=== PATIENT | female | born 1990 | race Caucasian/White ===

== ENCOUNTER 2017-10-30 22:58 | Emergency (ER) | payer MEDICAID ==
[~2017-10-30] VITALS: Ht 177.8 cm; Wt 90.9 kg
[~2017-10-30 22:58] MED LIST: SULF1TAB49 PO
[2017-10-30] MEDS ORDERED: acetaminophen 325mg tablet PO ONE (23:15)
[2017-10-30] MEDS ORDERED: normal saline 1000ML IV soln IVB ONE (23:55)
[2017-10-31 00:03] LABS: CLARITY,URINE Turbid (Clear); COLOR,URINE Yellow (Yellow); GLUCOSE, URINE Negative (Neg); KETONES,URINE Negative (Neg); LEUKOCYTE ESTERASE ,URINE Large (Neg); NITRITES, URINE Positive (Neg); OCCULT BLOOD,URINE Moderate (Neg); PROTEIN,URINE 100 mg/dl (Neg)
[2017-10-31 00:06] LABS: URINE HCG NEGATIVE (NEG)
[2017-10-31 00:25] LABS: UA COLLECTION TYPE CLN CATCH MIDSTREAM
[2017-10-31 00:30] LABS: BACTERIA,URINE 3+ /HPF (Neg); MUCUS STRANDS NONE SEEN /LPF (Neg); SQUAMOUS EPITHELIAL CELL,UR FEW /LPF (FEW); WBC,URINE TNTC /HPF (0-4)
[2017-10-31] MEDS ORDERED: CefTRIAXone 2gm/NS 100ml IVPB 100 ML IV ONE (01:05)
[2017-10-31 01:27] LABS: ALANINE AMINOTRANSFERASE 71 U/L (12-78); ALBUMIN 3.2 G/DL (3.4-5.0); ALBUMIN/GLOBULIN RATIO 0.8 (1.1-1.5); ALKALINE PHOSPHATASE 68 IU/L (46-116); ANION GAP 7 (8-16); ASPARTATE AMINO TRANSFERASE 47 U/L (10-37); BILIRUBIN,TOTAL 0.9 MG/DL (0.1-1.0); BLOOD UREA NITROGEN 15 MG/DL (7-18); BUN/CREATININE RATIO 16.9 (6.6-38.0); CALCIUM 8.9 MG/DL (8.5-10.1); CHLORIDE 102 MMOL/L (99-107); CREATININE 0.89 MG/DL (0.40-0.90); GLUCOSE 114 MG/DL (70-104); LIPASE 65 U/L (73-393); SODIUM 140 MMOL/L (135-145); TOTAL CARBON DIOXIDE 31.5 MMOL/L (24-32); TOTAL PROTEIN 7.2 G/DL (6.4-8.2); eGFR 77 ML/MIN
[2017-10-31 01:52] LABS: BASOPHILS % (AUTO) 0.1 % (0-1); EOSINOPHILS # (AUTO) 0.2 X10'3 (0-0.9); EOSINOPHILS % (AUTO) 1.4 % (0-6); HEMOGLOBIN 12.3 g/dl (12.0-16.0); LYMPHOCYTES # (AUTO) 1.2 X10'3 (1.1-4.8); LYMPHOCYTES % (AUTO) 9.1 % (21-51); MEAN CORPUSCULAR HEMOGLOBIN 28.6 PG (27.0-31.0); MEAN CORPUSCULAR HGB CONC 33.1 % (33.0-36.5); MEAN CORPUSCULAR VOLUME 86.2 FL (78-98); MEAN PLATELET VOLUME 7.9 FL (7.4-10.4); MONOCYTES % (AUTO) 7.4 % (2-12); NEUTROPHILS # (AUTO) 10.5 X10'3 (1.8-7.7); PLATELET COUNT 234 X10'3 (140-440); RED CELL DISTRIBUTION WIDTH 15.7 % (11.5-14.5); WHITE BLOOD COUNT 12.8 X10'3 (4.5-11.0)
[2017-10-31] MEDS ORDERED: CEPH500C5 PO (01:55)
[2017-10-31] MEDS ORDERED: ketorolac trometh. 30mg/ml inj. IV ONE (02:00)
[2017-10-31 02:11] VITALS: BP 113/65
[2017-10-31 02:15] LABS: ANISOCYTOSIS 1+; PLATELET ESTIMATE NORMAL; TOTAL CELLS COUNTED 100
== END 2017-10-31 02:17 | disposition home or self-care (01) ==
LOC: ER 22:59
DX: N39.0 Urinary tract infection, site not specified (principal); F15.10 Other stimulant abuse, uncomplicated; F17.200 Nicotine dependence, unspecified, uncomplicated; Z90.89 Acquired absence of other organs
CPT/HCPCS: 36415; 71046; 80053; 81001; 81025; 83690; 85025; 87077; 87088; 87186; 96365; 96375; 99285; J0696; J1885; J7030; 81003

== ENCOUNTER 2017-12-14 13:31 | Emergency (ER) | payer MEDICAID ==
[~2017-12-14] VITALS: Ht 177.8 cm; Wt 90.9 kg
[~2017-12-14 13:31] MED LIST changes: +CEPH500C5 PO; -SULF1TAB49 PO
[2017-12-14 14:28] VITALS: BP 112/65
== END 2017-12-14 14:29 | disposition home or self-care (01) ==
LOC: ER 13:31
DX: Z02.89 Encounter for other administrative examinations (principal); F11.20 Opioid dependence, uncomplicated; F15.10 Other stimulant abuse, uncomplicated; Z90.89 Acquired absence of other organs; Z60.2 Problems related to living alone; Z56.0 Unemployment, unspecified
CPT/HCPCS: 99281

== ENCOUNTER 2018-01-26 08:56 | Emergency (ER) | payer MEDICAID ==
[~2018-01-26] VITALS: Ht 177.8 cm; Wt 104.0 kg
[2018-01-26 09:01] VITALS: BP 119/68
[2018-01-26] MEDS ORDERED: GENT5DRO4 EACHEYE (09:31)
== END 2018-01-26 09:40 | disposition home or self-care (01) ==
LOC: ER 08:56
DX: J06.9 Acute upper respiratory infection, unspecified (principal); H10.33 Unspecified acute conjunctivitis, bilateral; F15.10 Other stimulant abuse, uncomplicated
CPT/HCPCS: 99283